=== PATIENT | male | born 1970 | race Caucasian/White ===

== ENCOUNTER → 2017-03-05 | Outpatient (CLI) | payer OTHER ==
--- NOTE | 2017-03-05 18:23 | RAD ---
APPROVED REPORT Patient Location : OUT-PATIENT Indications Lower Extremity Pain : Grayscale images of the bilateral lower extremity superficial veins were obtained and this does not r eveal any evidence of thrombus at the saphenofemoral junctions. The right great saphenous vein measur es 6.7 mm and the left great saphenous vein measures 4 mm. There is no evidence of reflux in the bila teral greater saphenous veins. The bilateral small saphenous veins also did not show any evidence of reflux. Critical Notification Critical Value: No <Conclusion> Negative for reflux in the bilateral lower extremity superficial veins.
== END | disposition home or self-care (01) ==
LOC: US 07:34
PROVIDERS: ATTEND Internal Medicine Cardiovascular Disease
DX: M79.604 Pain in right leg (principal); M79.605 Pain in left leg; M79.89 Other specified soft tissue disorders
CPT/HCPCS: 93970

== ENCOUNTER → 2017-10-08 | Outpatient (CLI) | payer OTHER ==
[~2017-10-08] MED LIST: BARIUM SULFATE 60% 355 ML SUSP PO ONE
--- NOTE | 2017-10-08 10:52 | RAD ---
SMALL BOWEL SERIES History: DIARRHEA SINCE JUNE, COLITIS SEEN ON COLONOSCOPY Comparison: None. Findings: Small bowel examination was performed. 13 images are submitted. [employer] radiograph demonstrates nonobstructive bowel gas pattern. Caliber of the small bowel is within normal limit, no evidence of obstruction. There was contrast in the ascending colon by about 90 minutes. No significant stricture is demonstrated. Impression: 1. No significant abnormality is identified. Electronically signed by: Curtis Xavier MD (10/08/2017 10:49 AM) [id number]
== END | disposition home or self-care (01) ==
LOC: RAD 08:36
PROVIDERS: ATTEND Internal Medicine Gastroenterology
DX: K52.89 Other specified noninfective gastroenteritis and colitis (principal); R19.7 Diarrhea, unspecified
CPT/HCPCS: 74250